=== PATIENT | female | born 1980 | race African-American/Black ===

== ENCOUNTER 2017-10-16 17:10 | Emergency (ER) | payer OTHER, SELFPAY ==
[~2017-10-16] VITALS: Ht 167.6 cm; Wt 97.5 kg
[~2017-10-16 17:10] MED LIST: HYDROCODON-ACE1 EAC7 PO; HYDROCODONE-AP1 EAC6 PO; NOHOMEMEDICATIONS; PROTONIX40 M2 PO; SENNA S TABLET1 EACH PO
[2017-10-16 18:30] LABS: ABSOLUTE NEUTROPHILS 3.7 thou/uL (1.4-8.2); BASOPHILS 0.3 % (0.0-2.0); EOSINOPHILS 0.9 % (0.0-3.0); HEMATOCRIT 38.1 % (37.0-47.0); HEMOGLOBIN 12.8 gm/dL (12.0-15.0); LYMPHOCYTES 43.8 % (24.0-44.0); MCH 29.9 pg (26.0-34.0); MCHC 33.5 g/dL (28.0-37.0); MCV 89.3 fL (80.0-100.0); MONOCYTES 9.4 % (1.0-8.0); PLATELET COUNT 259 thou/uL (150-400); POLYS 45.6 % (36.0-66.0); RBC 4.27 mil/uL (4.20-5.00)
[2017-10-16 18:34] LABS: ANION GAP 9 mmol/L (7-16); BUN 10 mg/dL (7-18); CALCIUM 9.1 mg/dL (8.5-10.1); CHLORIDE 102 mmol/L (98-107); CO2 25 mmol/L (21-32); CREATININE 0.8 mg/dL (0.6-1.0); GLUCOSE 90 mg/dL (74-106); POTASSIUM 3.6 mmol/L (3.5-5.1); SODIUM 136 mmol/L (136-145)
[2017-10-16 18:41] LABS: ALBUMIN 3.8 g/dL (3.4-5.0); DIRECT BILIRUBIN < 0.1 mg/dL (<0.1-0.3); LIPASE 101 U/L (73-393); SGOT 17 U/L (15-37); SGPT 26 U/L (30-65); TOTAL BILIRUBIN 0.5 mg/dL (<0.1-1.0)
== END 2017-10-16 20:19 | disposition home or self-care (01) ==
LOC: ER 17:10
PROVIDERS: Emergency Medicine
DX: K52.9 Noninfective gastroenteritis and colitis, unspecified (principal); Z90.49 Acquired absence of other specified parts of digestive tract

== ENCOUNTER 2018-07-01 05:50 | Emergency (ER) | payer OTHER ==
[~2018-07-01] VITALS: Ht 167.6 cm; Wt 104.3 kg
[2018-07-01 07:50] LABS: HEMOGLOBIN 12.1 gm/dL (12.0-15.0); MCH 29.3 pg (26.0-34.0); MCHC 33.6 g/dL (28.0-37.0); MCV 87.4 fL (80.0-100.0); RBC 4.12 mil/uL (4.20-5.00); RDW 14.8 % (10.5-14.5); WBC 14.1 thou/uL (4.0-11.0)
[2018-07-01 07:57] LABS: CALCIUM 9.1 mg/dL (8.5-10.1); CREATININE 0.8 mg/dL (0.6-1.0); POTASSIUM 3.9 mmol/L (3.5-5.1)
[2018-07-01 10:04] VITALS: BP 134/69
== END 2018-07-01 19:06 | disposition still patient (30) ==
LOC: ER 05:50
PROVIDERS: Emergency Medicine
DX: S32.402A Unspecified fracture of left acetabulum, initial encounter for closed fracture (principal); Z90.49 Acquired absence of other specified parts of digestive tract; Z95.0 Presence of cardiac pacemaker; W10.8XXA Fall (on) (from) other stairs and steps, initial encounter; Y93.89 Activity, other specified; Y92.009 Unspecified place in unspecified non-institutional (private) residence as the place of occurrence of the external cause; Y99.8 Other external cause status